=== PATIENT | female | born 1995 | race African-American/Black ===

== ENCOUNTER 2018-08-20 07:17 | Emergency (ER) | payer BC ==
[~2018-08-20] VITALS: Ht 167.6 cm; Wt 60.8 kg
[~2018-08-20 07:17] MED LIST: AMOXICILLIN; AMOXICILLIN 50500 MG PO; AMOXIL 875 MG875 M1 PO; BACTRIM DS TAB1 EACH PO; BACTROBAN22 GM TP; CEFDINIR300 MG PO; CIPROFLOXIN HC2.5 M1 OPHTHALMIC; CLEOCIN HCL300 MG PO; CORTISPORIN OTI10 ML OT; DIPHENHIST50 MG PO; FLEXERIL PO; HIBICLENS120 ML TOP; IBUPROFEN 400400 M1 PO; IBUPROFEN 600600 M1 PO; IBUPROFEN 800800 M1 PO; MACROBID 100 M100 M2 PO; MEDROLDOSEPACK PO; NAPROSYN500 MG PO; NOHOMEMEDICATIONS; NORCO 5-325 TA1 EACH PO; PREDNISONE 20 M20 M1 PO; ROBAXIN 750 MG750 M1 PO; TESSALON PERLE100 MG PO; TRAMADOL 50 MG50 MG PO; TRINATE TABLET1 TAB PO; VENTOLIN HFA 1818 GM INH; ZPAK PO
[2018-08-20] MEDS ORDERED: CORTISPORIN OTI10 M2 OTIC (07:42)
[2018-08-20 07:55] VITALS: BP 107/68
== END 2018-08-20 08:01 | disposition home or self-care (01) ==
LOC: M.ERS 07:17
DX: H61.23 Impacted cerumen, bilateral (principal); M41.9 Scoliosis, unspecified; Z91.041 Radiographic dye allergy status; Z91.013 Allergy to seafood

== ENCOUNTER 2019-02-11 14:27 | Emergency (ER) | payer BC ==
[~2019-02-11] VITALS: Ht 167.6 cm; Wt 69.4 kg
[~2019-02-11 14:27] MED LIST changes: +CORTISPORIN OTI10 M2 OTIC
[2019-02-11] MEDS ORDERED: DEPO-PROVER150 MG/M1 IM (14:43)
[2019-02-11 14:52] LABS: URINE BILIRUBIN NEGATIVE (Negative); URINE BLOOD 3+ (Negative); URINE CLARITY CLOUDY; URINE COLOR YELLOW; URINE GLUCOSE-RANDOM NEGATIVE (Negative); URINE KETONES NEGATIVE (Negative); URINE LEUKOCYTES-REFLEX TRACE (Negative); URINE NITRITE-REFLEX NEGATIVE (Negative); URINE PROTEIN NEGATIVE (Negative)
[2019-02-11 15:01] LABS: ABSOLUTE BASOPHILS 0.1 thou/uL (0.0-0.2); ABSOLUTE LYMPHOCYTES 2.6 thou/uL (0.8-5.3); ABSOLUTE MONOCYTES 0.5 thou/uL (0.0-1.2); ABSOLUTE NEUTROPHILS 3.6 thou/uL (1.6-8.1); BASOPHILS 0.8 %; EOSINOPHILS 0.5 %; HEMATOCRIT 38.4 % (37.0-47.0); LYMPHOCYTES 37.9 %; MCH 29.8 pg (26.0-34.0); MCHC 33.8 g/dL (28.0-37.0); MCV 88.1 fL (80.0-100.0); MONOCYTES 7.2 %; MPV 7.4 fl. (7.2-11.1); NUCLEATED RBCS 0 /100WBC; PLATELET COUNT* 278 thou/uL (150-400); POLYS 53.6 %; RBC 4.36 mil/uL (4.20-5.00); RDW-CV 13.8 % (10.5-14.5); WBC 6.7 thou/uL (4.0-11.0)
[2019-02-11 15:01] LABS: SQUAMOUS >10 Many /LPF (0-3); URINE WBC-REFLEX 0-5 Rare /HPF (0-5)
[2019-02-11 15:02] LABS: MUCUS >6 Heavy strn/LPF (None Seen); URINE RBC 0-2 Rare /HPF (0-2)
[2019-02-11 15:03] LABS: CASTS None Seen /LPF (None Seen); CRYSTALS None Seen /LPF (None Seen)
[2019-02-11 15:06] LABS: AMORPHOUS PHOSPHATES Moderate /LPF (None Seen)
[2019-02-11 15:06] LABS: CALCIUM 8.4 mg/dL (8.5-10.1); POTASSIUM 3.2 mmol/L (3.5-5.1)
[2019-02-11 15:11] LABS: ALBUMIN 3.1 g/dL (3.4-5.0); TOTAL BILIRUBIN 0.2 mg/dL (<0.1-1.0); TOTAL PROTEIN 6.6 g/dL (6.4-8.2)
[2019-02-11 15:40] VITALS: BP 125/74
== END 2019-02-11 15:39 | disposition home or self-care (01) ==
LOC: M.ERS 14:27
PROVIDERS: Nurse Practitioner Family
DX: N93.9 Abnormal uterine and vaginal bleeding, unspecified (principal); M41.9 Scoliosis, unspecified; Z91.041 Radiographic dye allergy status; Z91.013 Allergy to seafood